=== PATIENT | male | born 1995 | race Caucasian/White ===

== ENCOUNTER 2017-08-26 08:48 | Emergency (ER) | payer OTHER, SELFPAY ==
[2017-08-26 08:49] VITALS: BP 132/76; PULSE 82; RESP 16; TEMP 36.7; O2SAT 96; BMI 23.6
--- NOTE | 2017-08-26 08:57 | CT_ITS ---
STUDY: CT CERVICAL SPINE WITHOUT CONTRAST REASON FOR EXAM: Male, 21 years old. History of a 20 foot fall. RADIATION DOSAGE (If Supplied By Facility): CTDIvol = ( 14.83 ) mGy, DLP = ( 245.37 ) mGycm TECHNIQUE: High resolution transaxial imaging was performed without contrast material. Sagittal and coronal images were reconstructed. Individualized dose optimization techniques were used for this CT. COMPARISON: None FINDINGS: Normal craniovertebral junction. Normal anterior atlantoaxial articulation. Normal odontoid process. There is straightening of the normal cervical lordosis. Normal vertebral bodies and posterior osseous elements. C2-3: Normal endplates. Normal disc height and morphology. Normal central canal and intervertebral neuroforamina. C3-4: Normal endplates. Normal disc height and morphology. Normal central canal and intervertebral neuroforamina. C4-5: Normal endplates. Normal disc height and morphology. Normal central canal and intervertebral neuroforamina. C5-6: Normal endplates. Normal disc height and morphology. Normal central canal and intervertebral neuroforamina. C6-7: Normal endplates. Normal disc height and morphology. Normal central canal and intervertebral neuroforamina. C7-T1: Normal endplates. Normal disc height and morphology. Normal central canal and intervertebral neuroforamina. Normal visualized soft tissue structures. CT/Spine Cervical without Contras IMPRESSION: Straightening of the normal cervical lordosis. Electronically Signed: Esau Elmore MD at 9:37 EDT Tel [phone], Service support ,
--- NOTE | 2017-08-26 09:03 | ED.DCSUM_ITS ---
- ER Visit Summary Date of Service: 08/26/17 Chief Complaint: Fall History of Present Illness: The patient is a 21 M who presents with a fall that occurred today just prior to arrival. Patient states that he was on a roof when he fell off of it. Patient states he fell approximately 20 feet. Patient states he slipped while he was standing on the roof. Patient denies any head injury or loss of consciousness. Patient admits to some pain over his low back and right wrist area. Patient describes the pain as aching. Patient denies any paresthesias or weakness. Patient did not attempt to ambulate after the fall. Physical Examination: Vital signs are stable. Patient is afebrile. Patient is in no acute distress. Pupils are equal, round, reactive to light bilaterally. Extraocular muscles are intact. Oral mucosa is pink and moist. Neck is supple. There is no JVD noted. Heart was regular rate and rhythm. Lungs are clear and equal bilateral. There is good respiratory effort noted. Abdomen is soft. Bowel sounds are normal. There is no tenderness noted. Musculoskeletal exam reveals tenderness over the lower lumbar spine. There is no bony crepitance or step-off. There is also tenderness over the right wrist area. Range of motion was limited all motions of the right wrist. Cranial nerves II through XII are intact. Strength is 5/5 bilateral in the upper and lower extremities. There are no sensory deficits noted. The remaining physical exam is within normal limits. Test Results: CT scan of the cervical spine was obtained was negative. X-rays of the lumbar spine were obtained were negative. X-rays of the right wrist were obtained. There is a comminuted intra-articular fracture of the right distal radius. There is minimal angulation and displacement. Emergency Department Course and Treatment: Patient was placed in a short arm AP splint. Case was discussed with Dr. Martinez. She recommended obtaining a CT scan and she will follow-up with the patient in the office. Patient was given a prescription for a short-term course of [place]. Patient was instructed to ice and elevate the right wrist. Patient was instructed to return if worse in any way. Patient understood and was agreeable with the plan. All questions were answered. Disposition: Discharged home Impression: Right distal radius fracture This note was generated with [employer] software. It may contain incorrect words, spelling, and punctuation that were not noted in review of the chart prior to signing ED Disposition - Plan for ED Patient: Disposition: Home or Assisted Living Chief Complaint: Fall Diagnosis: Fracture of right distal radius Instructions: ED Fx Colles Wrist No Redu Requ, ED Splint Care Fiberglass Prescriptions: Hydrocodone Bitart/Apap 5-325 [[place] 5MG-325MG] 1 tab PO Q6H PRN PRN 3 Days #12 tab PRN Reason: Pain
--- NOTE | 2017-08-26 09:17 | RAD_ITS ---
STUDY: X-RAY - LUMBAR SPINE REASON FOR EXAM: Male, 21 years old. History of a 20 foot fall. Back pain. TECHNIQUE: 3 view(s) of the lumbar spine were obtained. COMPARISON: None FINDINGS: Normal lumbar lordosis. There is no substantial scoliosis. There is a normal alignment of the vertebrae. Normal vertebral bodies and endplates. Normal disc space heights. The soft tissue structures are unremarkable. RAD/Lumbar Spine 2 or 3 Views IMPRESSION: Normal x-ray examination of the lumbar spine. Electronically Signed: Esau Elmore MD at 9:39 EDT Tel [phone], Service support ,
--- NOTE | 2017-08-26 09:25 | RAD_ITS ---
STUDY: X-RAY - RIGHT WRIST REASON FOR EXAM: Male, 21 years old. Pain following a fall. TECHNIQUE: 3 view(s) of the wrist were obtained. COMPARISON: None. FINDINGS: There is a comminuted nondisplaced fracture of the distal radial metaphysis with extension to the articular surface. Avulsion fracture of the ulnar styloid. Normal radiocarpal articulation. Normal distal radioulnar articulation. Normal carpal bones. Normal carpal articulations. Normal carpometacarpal articulation of the thumb. Normal second through fifth carpometacarpal articulations. Normal visualized metacarpal bones. Soft tissue swelling. RAD/Wrist min 3 Views IMPRESSION: Comminuted nondisplaced fracture of the distal radial metaphysis with extension to the articular surface. Avulsion fracture of the ulnar styloid. Soft tissue swelling. Electronically Signed: Esau Elmore MD at 9:40 EDT Tel [phone], Service support ,
--- NOTE | 2017-08-26 11:14 | CT_ITS ---
STUDY: CT SCAN WRIST RIGHT REASON FOR EXAM: Male, 21 years old. History of radial fracture. RADIATION DOSAGE (If Supplied By Facility): CTDIvol = ( 24.58 ) mGy, DLP = ( 419.24 ) mGycm. Individualized dose optimization techniques were used for this CT.? TECHNIQUE: Multiple axial tomographic images of the right wrist were obtained without intravenous contrast administration. Coronal and sagittal reconstructions were obtained as well. COMPARISON: Comparison is made with the radiographs of the right wrist done earlier today. FINDINGS: There is evidence of a comminuted nondisplaced fracture of the distal radial metaphysis with extension to the articular surface. There is good anatomic alignment. Avulsion fracture of the ulnar styloid. Soft tissue swelling. CT/Extremity Upper without Contra IMPRESSION: Anatomic alignment of the comminuted fracture distal metaphysis extending to the articular surface. Electronically Signed: Esau Elmore MD at 12:06 EDT Tel [phone], Service support ,
--- NOTE | 2017-08-26 11:55 | ED.DCSUM_ITS ---
- ER Visit Summary Date of Service: 08/26/17 Chief Complaint: [] History of Present Illness: The patient is a 21 M [] Physical Examination: [] Test Results: [] Emergency Department Course and Treatment: [] Treatment Plan: [] Disposition: [] Impression: [] This note was generated with [employer] dictation software. It may contain incorrect words, spelling, and punctuation that were not noted in review of the chart prior to signing ED Disposition - Plan for ED Patient: Disposition: Home or Assisted Living Chief Complaint: Fall Diagnosis: Fracture of right distal radius Instructions: ED Fx Colles Wrist No Redu Requ, ED Splint Care Fiberglass Prescriptions: Hydrocodone Bitart/Apap 5-325 [[place] 5MG-325MG] 1 tab PO Q6H PRN PRN 3 Days #12 tab PRN Reason: Pain Referrals: Care Physician,No Primary [Primary Care Provider] -
[2017-08-26 12:23] VITALS: BP 124/81; PULSE 69; RESP 16; O2SAT 97
--- NOTE | 2017-08-26 12:24 | ED.RN ---
Ambulatory from unit with steady gait. Some stiffness to back while getting into sitting position. Denies difficulty once standing.
== END 2017-08-26 12:25 | disposition home or self-care (01) ==
PROVIDERS: Emergency Provider Emergency Medicine
DX: S52.571A Other intraarticular fracture of lower end of right radius, initial encounter for closed fracture (principal); W13.2XXA Fall from, out of or through roof, initial encounter; Y93.89 Activity, other specified; Y92.9 Unspecified place or not applicable; M54.5 Low back pain
CPT/HCPCS: 29125; 72100; 72125; 73110; 73200; 90715; 99285

== ENCOUNTER 2017-09-10 09:57 | Day surgery (SDC) | payer SELFPAY, OTHER ==
[2017-09-10 10:19] VITALS: BP 117/68; PULSE 68; RESP 16; TEMP 36.9; O2SAT 98; BMI 23.6
--- NOTE | 2017-09-10 11:10 | RAD_ITS ---
STUDY: X-RAY - RIGHT WRIST REASON FOR EXAM: ORIF right wrist fracture. TECHNIQUE: 3 view(s) of the wrist were obtained. COMPARISON: Radiographs 08/26/2017. FINDINGS: There is an orthopedic plate and screws transfixing a distal radial fracture in anatomic alignment and position. There is a small avulsion fracture of the ulnar styloid process. Electronically Signed: Hussein Cardona MD at 15:50 EDT Tel , Service support , RAD/Wrist min 3 Views
[2017-09-10] MEDS: Cefazolin 2 GM in 0.9% Normal Saline 100 ML IV (12:10)
--- NOTE | 2017-09-10 12:15 | PCM.DC.ORTHO ---
Discharge Diet: No Restrictions - leave dressing in place, follow up in 2 weeks for suture removal, call with concerns, if get dressing wet/dirty- remove and replace, Discharge Activity: May Not Drive May shower in (days): 1 Ice area for (Minutes): 20 - Every hour while awake. Weight Bearing Status: Weight bearing as tolerated Keep extremity elevated above heart level: Operative Extremity Call your doctor if your incision/area has: Continuous Slow Oozing, Sudden Increased Bleeding, Increased Pain/ Swelling, Increased Redness, Foul Smelling Discharge Call your doctor if you observe: Fever of 101 or Higher, Coldness, Increased Pain, Numbness or Tingling, Change in Color, Calf discomfort Allergies/Adverse Reactions: Allergies BEES Allergy (Uncoded 09/08/17 13:32) Other Medications to take at Discharge Hydrocodone Bitart/Apap 5-325 [[place] 5MG-325MG] 1 tab PO Q6H PRN PRN 3 Days #12 tab 08/26/17 Acetaminophen/Codeine #3 [Tylenol #3 Tablet] 1 - 2 tablet PO Q6H PRN PRN #30 tablet 09/10/17 The following prescriptions were given: Acetaminophen/Codeine #3 [Tylenol #3 Tablet] 1 - 2 tablet PO Q6H PRN PRN #30 tablet PRN Reason: Pain Primary Care Physician: Care Physician,No Primary [Primary Care Provider] - Test Results: Test results from this visit will be discussed in further detail at your follow-up appointment, if applicable. Please Follow Up With: Montserrat Galan, DO - [phone]
--- NOTE | 2017-09-10 12:17 | OP.PCM_ITS ---
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 Risks benefits and alternatives surgery discussed with patient. Risks including but not limited to blood loss, blood clot, infection, neurovascular injury, failure procedure, loss of life and loss of limb. Patient is aware like proceed with right distal radius open reduction internal fixation. Next Operative note Patient seen and examined preoperative holding area. Right wrist was marked. Patient brought to the operating room placed supine on the operating table. Signing, anesthesia, antibiotics were administered. The right arm was prepped and draped in usual sterile fashion with a tourniquet is upper arm. Used fluoroscopy to ascertain the level of our incision and the extent of her incision. Timeout was performed. The right arm arm was then elevated exsanguinated and pressure was raised to 250 torr. Timeout was performed. We then used a 15 blade cut through the skin at the right over top of the FCR dissected down to the FCR and then FCR was moved ulnarly and we completed our dissection down to the pronator quadratus which was released sharply with knife off of its radial border and a periosteal elevator despite bit and ulnarly. We able to visualize the fracture site we used a dental pick to currently gently reduce it we then placed our 2.4 Synthes plate we placed our 2 cortical screws one on either ends of the most distal row of screws both cortical she was measured and placed currently after that we did have reduction of the intra- articular split. We then replaced the remaining 3 holes with locking screws. We then moved to the shaft screws reduce this back to bone we placed our first 14 mm insert a 60 mm and the most proximal in the oblong screw we had strep the other 216 screws were not able to use those to the first screw was a 16 the second was in 818 the third was a 14 prefer to use all 16th however like I said the second was more than 18 mm screw as other ones were stripped in case patient wants the plate and screws out at some later date and time elected to proceed with screws I can be removed more easily. We then irrigated the fracture with copious amounts sterile saline skin was closed the pronator was placed over top of the plate the skin and subcutaneous subcuticular layers placement was closed with 2-0 Vicryl and skin with running 4-0 Monocryl. Sterile dressings and a splint was applied. Tourniquet was deflated for total times a 5 minutes. Patient tolerated procedure well there are no comp occasions patient transferred to recovery room in stable condition. Postoperative note next Nonweightbearing on the right arm next Call if increased pain numbness tingling further issues arise Follow-up in 2 weeks Pharmacy has prescriptions as All questions answered of again follow-up in 2 weeks or sooner if there is any issues This note was generated with [employer] dictation software. It may contain incorrect words, spelling, and punctuation that were not noted in checking the note before signing.
[2017-09-10] MEDS: Ondansetron 4 MG/2 ML Vial (13:20)
[2017-09-10] MEDS: Mupirocin Ointment 22gm Tube 1 APPLIC (13:53)
[2017-09-10 14:06] VITALS: BP 117/68; BP 128/73; PULSE 77; RESP 16; TEMP 36.7; O2SAT 94
[2017-09-10 14:15] VITALS: BP 117/68; BP 128/73; PULSE 88; RESP 16; O2SAT 94
[2017-09-10 14:30] VITALS: BP 117/68; BP 129/91; PULSE 65; RESP 16; O2SAT 95
[2017-09-10 14:40] VITALS: BP 117/68; BP 136/84; PULSE 74; RESP 16; TEMP 36.8; O2SAT 95
[2017-09-10 15:24] VITALS: BP 110/72; BP 117/68; PULSE 78; RESP 18; TEMP 36.2; O2SAT 98
== END 2017-09-10 15:27 | disposition home or self-care (01) ==
LOC: SDC 10:00 → AC 10:44
PROVIDERS: Visit Provider Orthopaedic Surgery
PROC: (CPT 25608; principal; 2017-09-10 10:50)
DX: S52.571A Other intraarticular fracture of lower end of right radius, initial encounter for closed fracture (principal); W13.2XXA Fall from, out of or through roof, initial encounter; Y93.9 Activity, unspecified; Y92.9 Unspecified place or not applicable
CPT/HCPCS: 25608; 73110; 76000; C1713; J7120; J2405

== ENCOUNTER → 2017-09-23 12:32 | Outpatient (CLI) | payer OTHER, SELFPAY | PROVIDERS: Visit Provider Orthopaedic Surgery | DX: S52.571A Other intraarticular fracture of lower end of right radius, initial encounter for closed fracture (principal); X58.XXXA Exposure to other specified factors, initial encounter | CPT/HCPCS: 73110 ==